=== PATIENT | female | born 1980 | race Two or more races ===

== ENCOUNTER 2021-07-12 15:31 | Inpatient (IN) | payer MEDICAID, OTHER ==
[~2021-07-12] VITALS: Ht 142.2 cm; Wt 64.6 kg
[2021-07-12] MEDS ORDERED: SODIUM CHLORIDE 0.9% 500 ML IVB ONE (16:30)
[2021-07-12] MEDS ORDERED: SODIUM CHLORIDE 0.9% 1,000 ML IV ONE (16:30)
[2021-07-12] MEDS ORDERED: KETOROLAC TROMETH 30 MG/ML 1ML VIAL IV ONE (16:30)
[2021-07-12] MEDS ORDERED: METOCLOPRAMIDE HCL 5MG/ml INJ 2ml VIAL IV ONE (16:30)
[2021-07-12 17:04] LABS: Basophils # (auto) 0.1 10 ^3/uL (0-0.2); Eosinophils # (auto) 0.1 10 ^3/uL (0-0.8); Eosinophils % (auto) 0.8 % (0.0-7.0); Hematocrit 50.2 % (36.0-46.0); Hemoglobin 16.9 g/dL (12.2-16.2); Lymphocytes # (auto) 2.2 10 ^3/uL (0.4-5.4); Lymphocytes % (auto) 15.5 % (10.0-50.0); Mean Corpuscular Hemoglobin 31.4 pg (28.0-32.0); Mean Corpuscular Hgb Conc. 33.6 g/dL (32.0-36.0); Mean Corpuscular Volume 93.5 fL (80.0-100.0); Monocytes # (auto) 0.8 10 ^3/uL (0-1.3); Monocytes % (auto) 5.9 % (0.0-12.0); Neutrophils # (auto) 10.8 10 ^3/uL (1.6-8.6); Neutrophils % (auto) 76.8 % (37.0-80.0); Nucleated Red Blood Cells % 0.2 %; Red Blood Cells 5.37 10^6/uL (4.0-5.20); Red Cell Distribution Width 14.2 % (11.8-14.3)
[2021-07-12 17:22] LABS: Albumin 1.3 g/dL (3.4-5.0); BUN/Creatinine Ratio 19.4; Calcium 8.5 mg/dL (8.5-10.1)
[2021-07-12 17:25] LABS: Bilirubin, Total 0.1 mg/dL (0.2-1.0); Total Protein 5.7 g/dL (6.4-8.2)
[2021-07-12] MEDS ORDERED: IOHEXOL 350 MG/ML 100ML IJ ONE (19:08)
[2021-07-12] MEDS ORDERED: HEPARIN DRIP/D5W 100UNITS/ML 250 ML IV SCH (20:00)
[2021-07-12] MEDS ORDERED: HEPARIN SODIUM (PORCINE) 5000 UNITS/ML 1ML VIAL IV ONE (20:00)
[2021-07-12 20:31] LABS: INR 0.93 (0.9-1.15); Partial Thromboplastin Time 30.5 sec (23.6-33.0)
[2021-07-12] MEDS ORDERED: ACETAMINOPHEN 325 MG TAB PO PRN (21:30)
[2021-07-12] MEDS ORDERED: FAMOTIDINE 20 MG TAB PO ONE (21:30)
[2021-07-12] MEDS ORDERED: MORPHINE SULFATE INJECTION 2 MG/ML SYRG IV PRN (21:30)
[2021-07-12] MEDS: HYDROcodone-ACET 5/325MG TAB PO PRN (21:48)
[2021-07-12] MEDS: SODIUM CHLOR 0.9% PF (SALINE LOCK) 10ML VIAL/SYR IV SCH (22:04)
[2021-07-12 23:21] VITALS: BP 173/109
[2021-07-12 23:22] VITALS: BP 159/113
[2021-07-13] MEDS ORDERED: HYDROmorphone HCL 2 MG/ML VL/or syr IV PRN (00:30)
[2021-07-13 01:15] VITALS: BP 137/93
[2021-07-13] MEDS ORDERED: ATOR20TA50 PO (01:42)
[2021-07-13 05:12] VITALS: BP 118/60
[2021-07-13] MEDS: SODIUM CHLOR 0.9% PF (SALINE LOCK) 10ML VIAL/SYR IV SCH ×3 (05:36→21:12)
[2021-07-13] MEDS: HYDROmorphone HCL 2 MG/ML VL/or syr IV PRN ×3 (05:58→21:50)
[2021-07-13] MEDS: HYDROcodone-ACET 5/325MG TAB PO PRN ×3 (08:18→23:59)
[2021-07-13 09:00] VITALS: BP 124/90
[2021-07-13] MEDS: MORPHINE SULFATE INJECTION 2 MG/ML SYRG IV PRN ×2 (09:57→13:49)
[2021-07-13] MEDS: HEPARIN DRIP/D5W 100UNITS/ML 250 ML IV SCH ×3 (10:09→19:03)
[2021-07-13 13:00] VITALS: BP 129/83
[2021-07-13] MEDS ORDERED: NICOTINE 14 MG/24HR TOPICAL PATCH TD ONE (13:30)
[2021-07-13 17:00] VITALS: BP 141/68
[2021-07-13 18:47] LABS: INR 0.91 (0.9-1.15)
[2021-07-13 22:00] VITALS: BP 123/85
[2021-07-14] MEDS: HYDROmorphone HCL 2 MG/ML VL/or syr IV PRN ×2 (03:13→22:35)
[2021-07-14 04:43] LABS: Basophils # (auto) 0 10 ^3/uL (0-0.2); Basophils % (auto) 0.4 % (0.0-2.0); Eosinophils # (auto) 0.2 10 ^3/uL (0-0.8); Eosinophils % (auto) 2.1 % (0.0-7.0); Hematocrit 45.6 % (36.0-46.0); Hemoglobin 15.4 g/dL (12.2-16.2); Lymphocytes # (auto) 2.1 10 ^3/uL (0.4-5.4); Lymphocytes % (auto) 19.3 % (10.0-50.0); Mean Corpuscular Hemoglobin 32.2 pg (28.0-32.0); Mean Corpuscular Hgb Conc. 33.8 g/dL (32.0-36.0); Mean Corpuscular Volume 95.4 fL (80.0-100.0); Monocytes # (auto) 0.7 10 ^3/uL (0-1.3); Monocytes % (auto) 6.9 % (0.0-12.0); Neutrophils # (auto) 7.6 10 ^3/uL (1.6-8.6); Neutrophils % (auto) 71.3 % (37.0-80.0); Nucleated Red Blood Cells % 0.1 %; Red Blood Cells 4.77 10^6/uL (4.0-5.20); Red Cell Distribution Width 13.8 % (11.8-14.3); White Blood Cell 10.7 10^3/uL (4.4-10.8)
[2021-07-14 05:00] VITALS: BP 105/69
[2021-07-14] MEDS: SODIUM CHLOR 0.9% PF (SALINE LOCK) 10ML VIAL/SYR IV SCH ×3 (05:01→21:03)
[2021-07-14 05:09] LABS: BUN/Creatinine Ratio 12.5; Calcium 8.5 mg/dL (8.5-10.1); Magnesium 2.3 mg/dL (1.6-2.6); Potassium 3.5 mmol/L (3.5-5.1)
[2021-07-14] MEDS: HEPARIN DRIP/D5W 100UNITS/ML 250 ML IV SCH ×3 (06:29→18:31)
[2021-07-14] MEDS: HYDROcodone-ACET 5/325MG TAB PO PRN ×3 (06:50→17:58)
[2021-07-14 08:00] VITALS: BP 112/71
[2021-07-14 08:34] LABS: INR 0.93 (0.9-1.15); Partial Thromboplastin Time 43.8 sec (23.6-33.0)
[2021-07-14 09:00] VITALS: BP 112/71
[2021-07-14] MEDS: NICOTINE 14 MG/24HR TOPICAL PATCH TD SCH (09:35)
[2021-07-14 13:00] VITALS: BP 111/77
[2021-07-14 16:59] VITALS: BP 137/73
[2021-07-14 18:25] LABS: INR 0.94 (0.9-1.15)
[2021-07-14 22:00] VITALS: BP 134/84
[2021-07-15 01:07] LABS: INR 0.92 (0.9-1.15)
[2021-07-15] MEDS: HYDROcodone-ACET 5/325MG TAB PO PRN ×3 (02:30→22:08)
[2021-07-15 05:00] VITALS: BP 117/79
[2021-07-15] MEDS: SODIUM CHLOR 0.9% PF (SALINE LOCK) 10ML VIAL/SYR IV SCH ×3 (05:00→21:35)
[2021-07-15 08:09] LABS: INR 0.95 (0.9-1.15); Partial Thromboplastin Time 60.5 sec (23.6-33.0)
[2021-07-15] MEDS: HEPARIN DRIP/D5W 100UNITS/ML 250 ML IV SCH ×2 (08:42→23:36)
[2021-07-15 09:00] VITALS: BP 126/72
[2021-07-15] MEDS: NICOTINE 14 MG/24HR TOPICAL PATCH TD SCH (10:00)
[2021-07-15] MEDS ORDERED: levoFLOXacin 500MG 100 ML IV SCH (10:00)
[2021-07-15 12:56] VITALS: BP 143/90
[2021-07-15 14:17] LABS: INR 0.95 (0.9-1.15); Partial Thromboplastin Time 50.6 sec (23.6-33.0)
[2021-07-15] MEDS: SODIUM CHLORIDE 0.9% 1,000 ML IV SCH ×2 (14:22→19:15)
[2021-07-15 15:52] LABS: Basophils # (auto) 0.1 10 ^3/uL (0-0.2); Basophils % (auto) 0.7 % (0.0-2.0); Eosinophils # (auto) 0.2 10 ^3/uL (0-0.8); Eosinophils % (auto) 1.6 % (0.0-7.0); Hematocrit 42.8 % (36.0-46.0); Hemoglobin 14.4 g/dL (12.2-16.2); Lymphocytes % (auto) 17.6 % (10.0-50.0); Mean Corpuscular Hemoglobin 31.6 pg (28.0-32.0); Mean Corpuscular Hgb Conc. 33.8 g/dL (32.0-36.0); Mean Corpuscular Volume 93.6 fL (80.0-100.0); Monocytes # (auto) 0.6 10 ^3/uL (0-1.3); Monocytes % (auto) 5.5 % (0.0-12.0); Neutrophils # (auto) 8.3 10 ^3/uL (1.6-8.6); Neutrophils % (auto) 74.6 % (37.0-80.0); Nucleated Red Blood Cells % 0.2 %; Red Blood Cells 4.57 10^6/uL (4.0-5.20); Red Cell Distribution Width 13.6 % (11.8-14.3); White Blood Cell 11.2 10^3/uL (4.4-10.8)
[2021-07-15 17:00] VITALS: BP 147/89
[2021-07-15 20:00] VITALS: BP 148/84
[2021-07-15 22:00] VITALS: BP 148/84
[2021-07-16] MEDS: SODIUM CHLORIDE 0.9% 1,000 ML IV SCH ×2 (02:15→10:34)
[2021-07-16 05:00] VITALS: BP 136/86
[2021-07-16] MEDS: SODIUM CHLOR 0.9% PF (SALINE LOCK) 10ML VIAL/SYR IV SCH ×2 (05:57→13:37)
[2021-07-16 06:03] LABS: Basophils # (auto) 0.1 10 ^3/uL (0-0.2); Basophils % (auto) 0.6 % (0.0-2.0); Eosinophils # (auto) 0.2 10 ^3/uL (0-0.8); Eosinophils % (auto) 2.9 % (0.0-7.0); Hematocrit 40.1 % (36.0-46.0); Hemoglobin 13.9 g/dL (12.2-16.2); Lymphocytes # (auto) 2.1 10 ^3/uL (0.4-5.4); Lymphocytes % (auto) 25.3 % (10.0-50.0); Mean Corpuscular Hemoglobin 32.5 pg (28.0-32.0); Mean Corpuscular Hgb Conc. 34.7 g/dL (32.0-36.0); Mean Corpuscular Volume 93.6 fL (80.0-100.0); Monocytes # (auto) 0.7 10 ^3/uL (0-1.3); Neutrophils # (auto) 5.2 10 ^3/uL (1.6-8.6); Neutrophils % (auto) 63.2 % (37.0-80.0); Red Blood Cells 4.29 10^6/uL (4.0-5.20); Red Cell Distribution Width 13.5 % (11.8-14.3); White Blood Cell 8.3 10^3/uL (4.4-10.8)
[2021-07-16 06:17] LABS: Calcium 8.2 mg/dL (8.5-10.1); Magnesium 1.9 mg/dL (1.6-2.6); Potassium 3.7 mmol/L (3.5-5.1)
[2021-07-16 06:31] LABS: INR 0.93 (0.9-1.15); Partial Thromboplastin Time 64.4 sec (23.6-33.0)
[2021-07-16 08:00] VITALS: BP 137/81
[2021-07-16 09:00] VITALS: BP 137/81
[2021-07-16] MEDS: NICOTINE 14 MG/24HR TOPICAL PATCH TD SCH (09:20)
[2021-07-16] MEDS ORDERED: HEPARIN DRIP/D5W 100UNITS/ML 250 ML IV SCH (09:30)
[2021-07-16] MEDS ORDERED: APIX5TAB PO ×2 (11:25)
[2021-07-16] MEDS ORDERED: HYDR-4902 PO (11:28)
[2021-07-16] MEDS ORDERED: APIXABAN 5 MG TAB PO SCH (11:30)
[2021-07-16] MEDS: HYDROcodone-ACET 5/325MG TAB PO PRN (12:11)
[2021-07-16 12:39] VITALS: BP 137/81
== END 2021-07-16 13:47 | disposition home or self-care (01) | DRG 134 ==
LOC: ER 15:39 → OVERFLOW 21:24 → TELE-CENTR 23:00 → CENTRAL 23:05 → TELE-CENTR 07-13 00:56
PROVIDERS: ADMIT Internal Medicine; ATTEND Internal Medicine
DX: I26.99 Other pulmonary embolism without acute cor pulmonale (principal); N17.9 Acute kidney failure, unspecified; E88.09 Other disorders of plasma-protein metabolism, not elsewhere classified; N28.0 Ischemia and infarction of kidney; M54.9 Dorsalgia, unspecified; D72.829 Elevated white blood cell count, unspecified; E66.9 Obesity, unspecified; E78.5 Hyperlipidemia, unspecified; R73.03 Prediabetes; F17.210 Nicotine dependence, cigarettes, uncomplicated; R07.81 Pleurodynia; Z20.822 Contact with and (suspected) exposure to COVID-19; Z82.79 Family history of other congenital malformations, deformations and chromosomal abnormalities; Z79.01 Long term (current) use of anticoagulants; Z82.49 Family history of ischemic heart disease and other diseases of the circulatory system; Z86.711 Personal history of pulmonary embolism; Z68.31 Body mass index [BMI] 31.0-31.9, adult; N28.89 Other specified disorders of kidney and ureter
CPT/HCPCS: 36415; 71046; 71275; 74178; 80048; 80053; 83735; 84484; 84702; 85025; 85379; 85610; 85730; 87086; 93005; 93306; 93970; 93976; 96361; 96374; 99291; G0378; J1885

== ENCOUNTER 2021-08-07 13:23 | Emergency (ER) | payer MEDICAID ==
[~2021-08-07] VITALS: Ht 147.3 cm; Wt 61.2 kg
[~2021-08-07 13:23] MED LIST: APIX5TAB PO; ATOR20TA50 PO
[2021-08-07 15:40] LABS: Basophils # (auto) 0.1 10 ^3/uL (0-0.2); Eosinophils # (auto) 0.3 10 ^3/uL (0-0.8); Eosinophils % (auto) 2.2 % (0.0-7.0); Hemoglobin 16.2 g/dL (12.2-16.2); Lymphocytes % (auto) 22.6 % (10.0-50.0); Mean Corpuscular Hemoglobin 31.6 pg (28.0-32.0); Mean Corpuscular Hgb Conc. 33.8 g/dL (32.0-36.0); Mean Corpuscular Volume 93.6 fL (80.0-100.0); Monocytes # (auto) 0.7 10 ^3/uL (0-1.3); Monocytes % (auto) 5.1 % (0.0-12.0); Neutrophils # (auto) 9.1 10 ^3/uL (1.6-8.6); Neutrophils % (auto) 69.1 % (37.0-80.0); Red Blood Cells 5.12 10^6/uL (4.0-5.20); Red Cell Distribution Width 13.7 % (11.8-14.3); White Blood Cell 13.1 10^3/uL (4.4-10.8)
[2021-08-07 15:59] LABS: Alanine Aminotransferase 23 U/L (13-56); Albumin 1.6 g/dL (3.4-5.0); Anion Gap 5 (5-15); Aspartate Aminotransferase 18 U/L (15-37); BUN/Creatinine Ratio 23.3; Blood Urea Nitrogen 14 mg/dL (7-18); Calcium 8.5 mg/dL (8.5-10.1); Carbon Dioxide 22 mmol/L (21-32); Chloride 112 mmol/L (98-107); GFR African American 143 mL/min; GFR Non-African American 118 mL/min; Glucose 93 mg/dL (74-106); Potassium 4.1 mmol/L (3.5-5.1); Sodium 139 mmol/L (136-145)
[2021-08-07 16:01] LABS: Alkaline Phosphatase 79 U/L (45-117); Bilirubin, Total < 0.1 mg/dL (0.2-1.0); Total Protein 5.4 g/dL (6.4-8.2)
[2021-08-07 20:59] VITALS: BP 128/83
== END 2021-08-07 21:09 | disposition home or self-care (01) ==
LOC: ER 13:23
DX: R60.0 Localized edema (principal)
CPT/HCPCS: 36415; 71045; 80053; 83880; 84484; 85025; 93005

== ENCOUNTER 2021-09-27 15:33 | Emergency (ER) | payer MEDICAID ==
[2021-09-27 16:12] VITALS: BP 135/78
[2021-09-27] MEDS ORDERED: LIDOCAINE 2%HCL (LOCAL ANESTH.) INJ 10ml MDV ONE (17:46)
[2021-09-27] MEDS ORDERED: CEPH-509 PO (18:04)
== END 2021-09-27 18:24 | disposition home or self-care (01) ==
LOC: ER 15:33
DX: S90.851A Superficial foreign body, right foot, initial encounter (principal); X58.XXXA Exposure to other specified factors, initial encounter; Y93.89 Activity, other specified; Y92.89 Other specified places as the place of occurrence of the external cause; Y99.8 Other external cause status
CPT/HCPCS: 73620; 99284; J2001

== ENCOUNTER 2021-10-25 23:36 | Emergency (ER) | payer MEDICAID ==
[~2021-10-25] VITALS: Ht 147.3 cm; Wt 63.6 kg
[~2021-10-25 23:36] MED LIST changes: +CEPH-509 PO
[2021-10-26 07:31] VITALS: BP 144/97
[2021-10-26] MEDS ORDERED: ACETAMINOPHEN/CODEINE#3 (300/30mg) TAB PO ONE (08:00)
[2021-10-26] MEDS ORDERED: ONDANSETRON ODT 4 MG TAB PO ONE (08:00)
== END 2021-10-26 08:02 | disposition home or self-care (01) ==
LOC: ER 23:36
DX: M79.671 Pain in right foot (principal); L84 Corns and callosities; E78.5 Hyperlipidemia, unspecified; F17.210 Nicotine dependence, cigarettes, uncomplicated; Z79.899 Other long term (current) drug therapy
CPT/HCPCS: 73630; 99283; Q0162